=== PATIENT | female | born 1980 | race Caucasian/White ===

== ENCOUNTER 2023-12-06 01:59 | Emergency (ER) | payer OTHER ==
[~2023-12-06] VITALS: Ht 167.6 cm; Wt 90.0 kg
[2023-12-06 02:03] VITALS: BP 127/68; PULSE 78; RESP 18; TEMP 98.9; O2SAT 97
[2023-12-06] MEDS ORDERED: ONDA8TAB13 PO (02:39)
[2023-12-06] MEDS ORDERED: HYDR-3965 PO (02:39)
== END 2023-12-06 02:58 | disposition home or self-care (01) ==
LOC: ER 02:00
DX: S62.101A Fracture of unspecified carpal bone, right wrist, initial encounter for closed fracture (principal); W01.0XXA Fall on same level from slipping, tripping and stumbling without subsequent striking against object, initial encounter; Y93.89 Activity, other specified; Y92.89 Other specified places as the place of occurrence of the external cause; Y99.8 Other external cause status
CPT/HCPCS: 99284